=== PATIENT | female | born 1955 ===

== ENCOUNTER 2017-02-11 14:28 | Emergency (ER) | payer SELFPAY ==
[2017-02-11 14:38] VITALS: TEMP 98.8
[2017-02-11] MEDS ORDERED: Aluminum Hydroxide/Magnesium Hydroxide Susp (30 mL) PO STA (14:58)
--- NOTE | 2017-02-11 14:58 | C.PDOC ---
History Of Present Illness 61 y/o female presents to ED with complaints of new onset front of left knee pain and swelling for 10 days. Patient states pain is worse with weight bearing and movement stating,"I feel crunching". Patient reports limited relief with Motrin but did not take any today secondary to limited use for GI upset. Patient denies trauma, weakness, numbness or any other complaints at this time. NEW ONSET L KNEE PAIN X 10 DAYS. NO TRAUMA. PAIN FRONT OF KNEE WORSE W WT BEAR, MOVEMENT. "I FEEL CRUNCHING" LIMITED RELIEF W MOTRIN. NONE TAKEN TODAY. +SWELL. PS LIMITED USE MOTRIN DUE TO GI UPSET EXAM MILD DIST NONTOX EXT L KNEE LMITED DUE TO BODY HABITUS. +GEN TEND ANTERIOR. AROM WO DIFF, REPRODUC PAIN. NO DEFORM, SUBLUX. Time Seen by Provider: 02/11/17 14:48 Chief Complaint (Nursing): Lower Extremity Problem/Injury History Per: Patient History/Exam Limitations: no limitations Onset/Duration Of Symptoms: Days Current Symptoms Are (Timing): Still Present Past Medical History Reviewed: Historical Data, Nursing Documentation, Vital Signs Vital Signs: Last Vital Signs Temp 98.8 F 02/11/17 14:36 Pulse 76 02/11/17 14:36 Resp 16 02/11/17 14:36 BP 152/80 H 02/11/17 14:36 Pulse Ox 99 02/11/17 15:00 - Medical History PMH: Gastritis, HTN, Osteoporosis Family History: States: No Known Family Hx - Social History Hx Tobacco Use: No Hx Alcohol Use: No Hx Substance Use: No - Immunization History Hx Tetanus Toxoid Vaccination: No Hx Influenza Vaccination: No Hx Pneumococcal Vaccination: No Review Of Systems Except As Marked, All Systems Reviewed And Found Negative. Musculoskeletal: Positive for: Leg Pain. Negative for: Foot Pain Skin: Negative for: Rash Neurological: Negative for: Weakness, Numbness Physical Exam - Physical Exam Appears: Non-toxic, Other (Mild distress) Skin: Normal Color, Warm, Dry, No Rash Eye(s): bilateral: Normal Inspection Oral Mucosa: Moist Extremity: Tenderness (General tenderness to anterior left knee), Capillary Refill (<2 seconds), No Deformity, Other (Left knee limited due to body habitus. Reproducible pain, No sublux) Extremity: Bilateral: Normal ROM Neurological/Psych: Oriented x3, Normal Speech, Normal Cognition, Normal Motor, Normal Sensation ED Course And Treatment O2 Sat by Pulse Oximetry: 99 (RA) Pulse Ox Interpretation: Normal Disposition Counseled Patient/Family Regarding: Diagnosis, Need For Followup, Rx Given - Disposition Referrals: [facility] [Outside] [facility] [Outside] Isacc Vivas III, MD [Staff Provider] - Disposition: HOME/ ROUTINE Disposition Time: 14:59 Condition: IMPROVED Prescriptions: Acetaminophen/Codeine [Tylenol/Codeine 300 MG/30 MG] 2 tab PO Q6H #20 tab Famotidine [Pepcid AC] 10 mg PO QN #30 tablet Ibuprofen [Motrin] 400 mg PO QID #30 tab Instructions: Osteoarthritis (ED) Forms: [employer] (Uzbek), Work Excuse Print Language: UKRAINIAN - Clinical Impression Clinical Impression: Knee pain - PA / JOCKEY ROOM CUSTODIAN / Resident Statement MD/DO has examined the patient and agrees with the treatment plan. - Scribe Statement The provider has reviewed the documentation as recorded by the Bryce Shah All medical record entries made by the Madonnaibjeanne were at my direction and personally dictated by me. I have reviewed the chart and agree that the record accurately reflects my personal performance of the history, physical exam, medical decision making, and the department course for this patient. I have also personally directed, reviewed, and agree with the discharge instructions and disposition.
[2017-02-11] MEDS ORDERED: Aluminum Hydroxide/Magnesium Hydroxide Susp (30 mL) ONE (15:11)
[2017-02-11 15:46] VITALS: BP 124/78; PULSE 72; RESP 18
[2017-02-11 15:47] VITALS: O2SAT 99
== END 2017-02-11 15:46 | disposition home or self-care (01) ==
LOC: C.ER 14:28
DX: M25.562 Pain in left knee (principal)
CPT/HCPCS: 96372; 99284; J1885

== ENCOUNTER 2018-08-01 15:36 | Emergency (ER) | payer SELFPAY ==
[2018-08-01 15:46] VITALS: BMI 29.6
[2018-08-01 15:51] VITALS: BP 143/85; PULSE 68; RESP 16; TEMP 98.4; O2SAT 96
[2018-08-01] MEDS ORDERED: Naproxen 550 mg Tab PO STA (16:10)
[2018-08-01] MEDS ORDERED: Naproxen 550 mg Tab PO ONE (16:17)
--- NOTE | 2018-08-01 16:30 | RAD ---
Date of service: 08/01/2018 PROCEDURE: Right Knee Radiographs. HISTORY: RIGHT KNEE PAIN COMPARISON: 07/01/2015. FINDINGS: BONES: Bone alignment and mineralization are normal. There is no acute displaced fracture or bone destruction. JOINTS: There is mild tricompartmental degenerative osteoarthrosis with reduced joint spaces, marginal osteophytes and tibial spiking, worse in the medial compartment. JOINT EFFUSION: None. OTHER FINDINGS: There is multifocal calcification in the lateral collateral ligament, which may be post-traumatic in etiology. IMPRESSION: No acute fracture or dislocation. Mild tricompartmental degenerative osteoarthrosis, worse in the medial compartment.
--- NOTE | 2018-08-01 16:39 | C.PDOC ---
History Of Present Illness 63-year-old female presents to the ED for evaluation of right posterior knee pain for three days. Patient denies fever, chills, calf tenderness, rash, or any falls/injuries at this time. Time Seen by Provider: 08/01/18 15:49 Chief Complaint (Nursing): Lower Extremity Problem/Injury History Per: Patient History/Exam Limitations: no limitations Onset/Duration Of Symptoms: Days (3) Current Symptoms Are (Timing): Still Present Additional History Per: Patient - Knee Description Of Injury: denies: Fell, Struck With Object, Struck Against Object, Twisted Past Medical History Reviewed: Historical Data, Nursing Documentation, Vital Signs Vital Signs: Last Vital Signs Temp 98.4 F 08/01/18 15:46 Pulse 68 08/01/18 15:46 Resp 16 08/01/18 15:46 BP 143/85 08/01/18 15:46 Pulse Ox 96 08/01/18 15:46 - Medical History PMH: Gastritis, HTN, Osteoporosis Surgical History: No Surg Hx Family History: States: Unknown Family Hx - Social History Hx Tobacco Use: No Hx Alcohol Use: No Hx Substance Use: No - Immunization History Hx Tetanus Toxoid Vaccination: No Hx Influenza Vaccination: No Hx Pneumococcal Vaccination: No Review Of Systems Constitutional: Negative for: Fever, Chills Musculoskeletal: Positive for: Other (right posterior knee pain, no calf pain ) Physical Exam - Physical Exam Appears: Non-toxic, No Acute Distress Skin: Normal Color, Warm, Dry, No Ecchymosis Head: Atraumatic, Normacephalic Eye(s): bilateral: Normal Inspection Extremity: Normal ROM, Tenderness (mild, to palpation of right lateral knee ), No Calf Tenderness, Capillary Refill (less than 2 seconds ), No Deformity, No Swelling, No Other (erythema or warmth to right knee ) Pulses: Left Dorsalis Pedis: Normal, Right Dorsalis Pedis: Normal Neurological/Psych: Oriented x3, Normal Speech, Normal Cognition, Normal Motor, Normal Sensation Gait: Steady ED Course And Treatment O2 Sat by Pulse Oximetry: 96 (on RA) Pulse Ox Interpretation: Normal - Other Rad knee XR X-Ray: Viewed By Me, Read By Radiologist Interpretation: Date of service: 08/01/2018. PROCEDURE: Right Knee Radiographs. HISTORY: RIGHT KNEE PAIN. COMPARISON: 07/01/2015. FINDINGS: BONES: Bone alignment and mineralization are normal. There is no acute displaced fracture or bone destruction. JOINTS: There is mild tricompartmental degenerative osteoarthrosis with reduced joint spaces, marginal osteophytes and tibial spiking, worse in the medial compartment. JOINT EFFUSION: None. OTHER FINDINGS: There is multifocal calcification in the lateral collateral ligament, which may be post-traumatic in etiology. IMPRESSION: No acute fracture or dislocation. Mild tricompartmental degenerative osteoarthrosis, worse in the medial compartment. Progress Note: Right knee x-ray was ordered and reviewed. X-ray shows some arthritic changes. Jeb wrap was applied to the knee by me. Naproxen PO given. On reassessment, patient is resting comfortably, showing no signs of distress and is stable for discharge. Patient is advised to follow up with orthopedic care within 1 week for further evaluation. Disposition Counseled Patient/Family Regarding: Studies Performed, Diagnosis, Need For Followup, Rx Given - Disposition Referrals: Camila Ybarra MD [Staff Provider] - Disposition: HOME/ ROUTINE Disposition Time: 16:50 Condition: STABLE Additional Instructions: FOLLOW UP WITH ORTHOPEDICS WITHIN 1 WEEK USE PAIN MEDICATION NEEDED RETURN TO EMERGENCY ROOM IF SYMPTOMS BECOME WORSE SEGUIR CON ORTOPEDIA EN JOAQUIN SEMANA UTILICE MEDICAMENTOS PARA EL DOLOR SEGN LO NECESARIO VUELVA A LA SHMUEL DE EMERGENCIA SI LOS SNTOMAS SE HACEN PEOR Prescriptions: Naproxen 375 mg PO BID PRN #20 tablet PRN Reason: pain Instructions: Osteoarthritis (DC), Knee Pain (DC) Forms: [employer] (Macanese) Print Language: KAZAKH - Clinical Impression Clinical Impression: Osteoarthritis of right knee, Right knee pain - Scribe Statement The provider has reviewed the documentation as recorded by the Scribe (Bonnie Dee) Provider Attestation: All medical record entries made by the Scribe were at my direction and perso feliz dictated by me. I have reviewed the chart and agree that the record accurately reflects my personal performance of the history, physical exam, medical decision making, and the department course for this patient. I have also personally directed, reviewed, and agree with the discharge instructions and disposition.
== END 2018-08-01 16:53 | disposition home or self-care (01) ==
LOC: C.ER 15:36
DX: M17.11 Unilateral primary osteoarthritis, right knee (principal); M25.561 Pain in right knee; I10 Essential (primary) hypertension; M81.0 Age-related osteoporosis without current pathological fracture

== ENCOUNTER 2018-09-08 08:04 | Outpatient (CLI) | payer SELFPAY | END 2018-09-08 08:05 | disposition home or self-care (01) | LOC: C.LAB 08:04 | DX: I10 Essential (primary) hypertension (principal); Z13.9 Encounter for screening, unspecified ==